=== PATIENT | male | born 1995 | race African-American/Black ===

== ENCOUNTER 2022-04-05 15:16 | Emergency (ER) | payer SELFPAY | END 2022-04-05 17:28 | disposition home or self-care (01) | LOC: JD.ED 15:16 | DX: S80.11XA Contusion of right lower leg, initial encounter (principal); W22.8XXA Striking against or struck by other objects, initial encounter | CPT/HCPCS: 73590-26-RT; 73590-RT; 99283 ==

== ENCOUNTER 2023-05-01 17:57 | Emergency (ER) | payer SELFPAY ==
[2023-05-01 18:52] LABS: CORONAVIRUS COVID-19 NAA POSITIVE (NEGATIVE); INFLUENZA A NAA NEGATIVE (NEGATIVE); RESPIRATORY SYNCYTIAL VIR NAA NEGATIVE (NEGATIVE)
== END 2023-05-01 19:36 | disposition home or self-care (01) ==
LOC: JD.ED 17:57
DX: U07.1 COVID-19 (principal); Z20.822 Contact with and (suspected) exposure to COVID-19
CPT/HCPCS: 0241U; 87651; 99283; 99282